=== PATIENT | female | born 1970 | race Caucasian/White ===

== ENCOUNTER 2018-04-07 20:49 | Emergency (ER) ==
[2018-04-07 20:58] VITALS: BP 155/100; TEMP 98; BMI 31.9
--- NOTE | 2018-04-07 21:56 | ED.PDOC ---
General ED Provider: Dr. ZAHIDA MAZARIEGOS Chief Complaint: Bite Stated Complaint: Right wrist wound that is healing for the past week but has some surrounding pain. Was wondering if it is ok because of the pain. Time Seen by Physician: 21:54 Mode of Arrival: Walk-In Information Source: Patient Nursing and Triage Documentation Reviewed and Agree: Yes Does patient meet sepsis criteria?: No System Inflammatory Response Syndrome: Not Applicable Sepsis Protocol: For patient's 13 years and over: Temp is 96.8 and below OR 101 and greater Pulse >90 BPM Resp >20/minute Acutely Altered Mental Status Are patient's symptoms suggestive of a new infection, such as: -Pneumonia -Skin, Soft Tissue -Endocarditis -UTI -Bone, Joint Infection -Implantable Device -Acute Abdominal Infection -Wound Infection -Meningitis -Blood Stream Catheter Infection -Unknown Review of Systems - Review Of Systems Constitutional: Reports: No symptoms Eyes: Reports: No symptoms Ears, Nose, Mouth, Throat: Reports: No symptoms Respiratory: Reports: No symptoms Cardiac: Reports: No symptoms GI: Reports: No symptoms : Reports: No symptoms Musculoskeletal: Reports: No symptoms Skin: Reports: Lesions Neurological: Reports: No symptoms Endocrine: Reports: No symptoms Hematologic/Lymphatic: Reports: No symptoms All Other Systems: Reviewed and Negative Past Medical History - Past Medical History Previously Healthy: Yes Endocrine: Reports: DM 2 Cardiovascular: Reports: None Respiratory: Reports: None Hematological: Reports: None Gastrointestinal: Reports: None Genitourinary: Reports: None Neuro/Psych: Reports: None Musculoskeletal: Reports: None Cancer: Reports: None Last Menstrual Period: 2016 - Surgical History General Surgical History: Reports: Hysterectomy, Appendectomy - Family History Family History: Reports: Unknown - Social History Smoking Status: Never smoker Hx Substance Use: No Alcohol Screening: Occasionally - Immunizations Tetanus Shot up to Date: No Physical Exam - Physical Exam Appearance: Well-appearing, No pain distress, Well-nourished Eyes: VARINDER, EOMI, Conjunctiva clear ENT: Ears normal, Nose normal, Oropharynx normal Respiratory: Airway patent, Breath sounds clear, Breath sounds equal, Respirations nonlabored Cardiovascular: RRR, Pulses normal, No rub, No murmur GI/: Soft, Nontender, No masses, Bowel sounds normal, No Organomegaly Musculoskeletal: Normal strength, ROM intact, No edema, No calf tenderness Skin: Warm, Dry, Normal color Neurological: Sensation intact, Motor intact, Reflexes intact, Cranial nerves intact, Alert, Oriented Psychiatric: Anxious, Depressed Critical Care Note - Critical Care Note Total Time (mins): 0 Course - Course Vital Signs: Temp Pulse Resp BP Pulse Ox 04/07/18 20:51 98 F 95 H 20 155/100 H 96 Departure - Departure Time of Disposition: 21:57 Disposition: HOME SELF-CARE Discharge Problem: Wound check, abscess Instructions: Insect Bite or Sting (ED) Condition: Stable Pt referred to PMD for follow-up: Yes IPMP verified?: No Additional Instructions: Watch the wound closely and return if worse Follow up with PCP in 3 day Take OTC pain medications as prescribed. keep would clean and Dry. Allergies/Adverse Reactions: Allergies No Known Allergies Allergy (Unverified 04/07/18 20:58) Home Medications: Ambulatory Orders Estradiol 0.5 mg PO EVERY OTHER DAY 04/07/18 Metformin HCl [Metformin HCl ER] 500 mg PO DAILY 04/07/18 Disposition Discussed With: Patient
== END 2018-04-07 22:00 | disposition home or self-care (01) ==
LOC: ED 20:49
DX: L02.413 Cutaneous abscess of right upper limb (principal); W57.XXXA Bitten or stung by nonvenomous insect and other nonvenomous arthropods, initial encounter
CPT/HCPCS: 99282